=== PATIENT | male | born 1955 | race Caucasian/White ===

== ENCOUNTER 2019-08-23 12:32 | Observation (INO) | payer OTHER ==
[~2019-08-23] VITALS: Ht 170.2 cm; Wt 89.9 kg
[2019-08-23] MEDS ORDERED: IV NORMAL SALINE 1,000ML 1,000 ML IV SCH (12:50)
--- NOTE | 2019-08-23 12:56 | PHYS DOC ---
Adult General Chief Complaint Chief Complaint: CHEST PAIN HPI HPI Patient is a 64-year-old male who presents with complaint of midsternal chest pain that started this morning at about 9 AM. Patient states that pain has been fairly constant since onset and is progressively worsening. He states the pain is worsened with deep breathing. He describes the pain as a pressure but states that it gets sharp when he takes in a deep breath. He denies any radiation of the pain. He does indicate that he is gotten diaphoretic when the pain has gotten worse. He denies any nausea or vomiting however. He also denies any shortness breath. Patient denies any history of cardiac disease but does admit to a family history of cardiac disease.[] Review of Systems Review of Systems Constitutional: Denies fever or chills [] Respiratory: Denies cough or shortness of breath [] Cardiovascular: No additional information not addressed in HPI [] GI: Denies abdominal pain, nausea, vomiting or diarrhea [] Integument: Denies rash or skin lesions [] Neurologic: Denies headache, focal weakness or sensory changes [] All other systems were reviewed and found to be within normal limits, except as documented in this note. Physical Exam Physical Exam Constitutional: Well developed, well nourished, no acute distress, non-toxic appearance. [] HENT: Normocephalic, atraumatic, bilateral external ears normal, oropharynx moist, no oral exudates, nose normal. [] Eyes: PERRLA, EOMI, conjunctiva normal, no discharge. [] Neck: Normal range of motion, no tenderness, supple, no stridor. [] Cardiovascular: Regular rate and rhythm[] Lungs & Thorax: Bilateral breath sounds clear to auscultation [] Abdomen: Bowel sounds normal, soft, no tenderness. [] Skin: Warm, dry, no erythema, no rash. [] Extremities: No tenderness, no cyanosis, no clubbing, ROM intact. [] Neurologic: Alert and oriented X 3, no focal deficits noted. [] EKG EKG EKG demonstrates mild sinus tachycardia with rate of 103.[] Radiology/Procedures Radiology/Procedures [] Impressions: PROCEDURE: CT ANGIOGRAPHY CHEST Exam: CT of chest with contrast INDICATION: Chest pain TECHNIQUE: Sequential axial images through the chest obtained following the administration of 80 mL of Omni 350 IV contrast. Sagittal and coronal reformatted images were reconstructed from the axial data and reviewed. 3-D reformatted images were reconstructed from the axial data and reviewed. Comparisons: None FINDINGS: There is a hypoattenuating nodule within the lower pole of the left thyroid which measures approximately 2.0 cm. No enlarged mediastinal lymph nodes are identified. Heart size is normal. No pericardial effusion. Thoracic aorta has a normal course and caliber. Pulmonary artery is not enlarged. No pulmonary embolus is identified within the main, lobar or segmental pulmonary arteries. Airways are patent. No consolidation or pneumothorax. Strandy opacities at the dependent portion of the lung bases. No suspicious lung nodules are identified. No pleural effusion or thickening. Gallstones are noted within the gallbladder. No suspicious osseous lesions or acute fractures. IMPRESSION: 1. No pulmonary was identified within the main, lobar or segmental pulmonary arteries. 2. A 2 cm hypoattenuating nodule in the lower lobe of the left thyroid lobe. Further evaluation with nonemergent ultrasound is recommended. Exposure: One or more of the following in the visualized dose reduction techniques were utilized for this examination: 1. Automated exposure control 2. Adjustment of the MA and/or KV according to patient size 3. Use of iterative of reconstructive technique Electronically signed by: Maren Reynoso MD (08/23/2019 3:33 PM) [facility] DICTATED AND SIGNED BY: MAREN REYNOSO MD DATE: 08/23/19 1533 CC: JOSSIE PATINO Jr. DO; LOAN RAUSCH DO ~ Course & Med Decision Making Course & Med Decision Making Pertinent Labs and Imaging studies reviewed. (See chart for details) [] Dragon Disclaimer Dragon Disclaimer This electronic medical record was generated, in whole or in part, using a voice recognition dictation system. Departure Departure: Impression: Primary Impression: Chest pain Disposition: ADMITTED INPATIENT Admitting Physician: Jori Salmon Condition: IMPROVED Referrals: LOAN RAUSCH DO (PCP) Problem Qualifiers Primary Impression: Chest pain Chest pain type: unspecified Qualified Codes: R07.9 - Chest pain, unspecified JOSSIE PATINO Jr., DO Aug 23, 2019 12:56
--- NOTE | 2019-08-23 12:58 | EKG ---
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
[2019-08-23] MEDS ORDERED: NITROGLYCERIN SUBLINGUAL 0.4 MG BOTTLE OF 25. SL PRN (13:00)
[2019-08-23] MEDS ORDERED: ASPIRIN 81 MG TAB.CHEW PO ONE (13:00)
[2019-08-23 13:15] LABS: BASO # 0.1 x10^3/uL (0.0-0.2); BASO % 1 % (0-3); EOS # 0.2 x10^3/uL (0.0-0.7); EOS % 1 % (0-3); HEMATOCRIT 47.5 % (39.0-53.0); HEMOGLOBIN 16.5 g/dL (13.0-17.5); LYMPH # 1.3 x10^3/uL (1.0-4.8); LYMPH % 8 % (24-48); MEAN CORPUSCULAR HEMOGLOBIN 32 pg (25-35); MEAN CORPUSCULAR HGB CONC 35 g/dL (31-37); MEAN CORPUSCULAR VOLUME 91 fL (79-100); MONO # 1.2 x10^3/uL (0.0-1.1); MONO % 7 % (0-9); NEUT # 14.9 x10^3uL (1.8-7.7); NEUT % 84 % (31-73); PLATELET COUNT 234 x10^3/uL (140-400); RED CELL DISTRIBUTION WIDTH 13.9 % (11.5-14.5); WHITE BLOOD COUNT 17.7 x10^3/uL (4.0-11.0)
--- NOTE | 2019-08-23 13:35 | RAD ---
PORTABLE CHEST 1V Clinical indications: Chest pain. COMPARISON: None available. Findings: There is mild elevation of the right hemidiaphragm. No acute lung infiltrate or pleural effusion or pulmonary edema or lung mass or pneumothorax is seen. The heart size, pulmonary vasculature, mediastinum and both sarah are unremarkable. Impression: Mild elevation of the right hemidiaphragm. No acute lung infiltrate. Electronically signed by: Billy Marie MD (08/23/2019 1:32 PM) [facility]
[2019-08-23 13:36] LABS: ALBUMIN/GLOBULIN RATIO 1.1 (1.0-1.7); CALCIUM 9.2 mg/dL (8.5-10.1); GFR 75.2; POTASSIUM 3.3 mmol/L (3.5-5.1); TOTAL BILIRUBIN 0.7 mg/dL (0.2-1.0); TOTAL PROTEIN 7.8 g/dL (6.4-8.2)
[2019-08-23 13:51] LABS: BILIRUBIN,URINE NEG (NEG); CLARITY,URINE CLEAR; COLOR,URINE YELLOW; GLUCOSE,URINE >=1000 mg/dL (NEG); NITRITE,URINE NEG (NEG); UROBILINOGEN,URINE 0.2 mg/dL (0.2 mg/dL)
[2019-08-23 13:52] LABS: BACTERIA,URINE 0 /HPF (0-FEW); RBC,URINE RARE /HPF (0-2); SQUAMOUS EPITHELIAL CELL,UR OCC /LPF; WBC,URINE OCC /HPF (0-4)
[2019-08-23] MEDS ORDERED: IOHEXOL 350 MG/ML 100 ML VIAL. IV ONE (14:30)
[2019-08-23 15:06] LABS: % ATYL 6 % (0-0); % BANDS 2 % (0-9); % BASOS 1 % (0-3); % LYMPHS 6 % (24-48); % MONOS 3 % (0-10); % SEGS 82 % (35-66)
[2019-08-23 15:24] LABS: PLT ESTIMATE ADEQUATE (ADEQUATE)
--- NOTE | 2019-08-23 15:36 | RAD ---
Exam: CT of chest with contrast INDICATION: Chest pain TECHNIQUE: Sequential axial images through the chest obtained following the administration of 80 mL of Omni 350 IV contrast. Sagittal and coronal reformatted images were reconstructed from the axial data and reviewed. 3-D reformatted images were reconstructed from the axial data and reviewed. Comparisons: None FINDINGS: There is a hypoattenuating nodule within the lower pole of the left thyroid which measures approximately 2.0 cm. No enlarged mediastinal lymph nodes are identified. Heart size is normal. No pericardial effusion. Thoracic aorta has a normal course and caliber. Pulmonary artery is not enlarged. No pulmonary embolus is identified within the main, lobar or segmental pulmonary arteries. Airways are patent. No consolidation or pneumothorax. Strandy opacities at the dependent portion of the lung bases. No suspicious lung nodules are identified. No pleural effusion or thickening. Gallstones are noted within the gallbladder. No suspicious osseous lesions or acute fractures. IMPRESSION: 1. No pulmonary was identified within the main, lobar or segmental pulmonary arteries. 2. A 2 cm hypoattenuating nodule in the lower lobe of the left thyroid lobe. Further evaluation with nonemergent ultrasound is recommended. Exposure: One or more of the following in the visualized dose reduction techniques were utilized for this examination: 1. Automated exposure control 2. Adjustment of the MA and/or KV according to patient size 3. Use of iterative of reconstructive technique Electronically signed by: Maren Joyner MD (08/23/2019 3:33 PM) [facility]
[2019-08-23] MEDS ORDERED: ONDANSETRON PF 4 MG/2 ML VIAL. IV PRN (16:15)
[2019-08-23] MEDS ORDERED: MORPHINE SULFATE 2 MG/ML DISP.SYRIN. IV PRN (16:15)
[2019-08-23 17:37] VITALS: BP 149/81
--- NOTE | 2019-08-23 17:58 | NUR ---
NSG NOTE; ADMISSION ADMIT TO ROOM 119 AT 1725 FROM ED VIA CART ACCOMP BY EMS PERSONNEL AND JOSE C/O CHEST PAIN SINCE 1000 TODAY, BUT HAS RESOLVED AT THIS TIME
[2019-08-23] MEDS ORDERED: GLIP10TA24 PO ×2 (19:26)
[2019-08-23] MEDS ORDERED: TRIA1TAB5 PO (19:26)
[2019-08-23] MEDS ORDERED: METF10007 PO (19:26)
[2019-08-23] MEDS ORDERED: RAMI10CA53 PO (19:26)
[2019-08-23] MEDS ORDERED: HYDR12.58 PO (19:26)
[2019-08-23] MEDS ORDERED: DAPA5TAB PO (19:26)
[2019-08-23] MEDS ORDERED: SITA100T PO (19:26)
[2019-08-23] MEDS ORDERED: SIMV20TA18 PO (19:26)
[2019-08-23] MEDS ORDERED: metFORMIN 500 MG TABLET PO SCH (20:30)
[2019-08-23] MEDS ORDERED: SIMVASTATIN 20 MG TABLET PO SCH (21:00)
[2019-08-23] MEDS ORDERED: LISINOPRIL 20 MG TABLET PO SCH (21:00)
[2019-08-23 21:19] VITALS: BP 144/75
[2019-08-23 23:15] VITALS: BP 154/77
[2019-08-24] MEDS ORDERED: POTASSIUM CHLORIDE 20 MEQ TABLET.ER. PO ONE (02:30)
[2019-08-24 06:19] VITALS: BP 126/72
--- NOTE | 2019-08-24 08:52 | PDOC2 ---
CARDIAC CONSULT DATE OF CONSULT Date Of Consult DATE: 08/24/19 TIME: 08:46 REASON FOR CONSULT Reason for Consult Chest pain REFERRING PHYSICIAN Referring Physician Dr. Ncik SOURCE Source: Chart review, Patient HPI History of Present Illness This is a 64 yo male who presented secondary to chest pain. Patient reports feeling well upon awakening yesterday morning. While getting ready for the day, notice some aching in her left shoulder. Bantam as if he slept on his shoulder wrong overnight. Attempted to stretch it out, but did not have any significant improvement. Later in the morning, developed aching in his central chest and then broke out in a sweat. Was concerned as he had never had this pain before so he went to the ED for further evaluation and treatment. No associated dizziness, palpitations, or nausea/vomiting. Did feel as if he was unable to take a deep breath. No specific relieving factors. Pain is still vaguely present. Did seem to worsen with deep breath this morning. No recent could or URI. Reports chronic nasal congestion. PAST MEDICAL HISTORY Cardiovascular: HTN, hyperipidemia Endocrine: Diabetes PAST SURGICAL HISTORY Past Surgical History: No pertinent history FAMILY HISTORY Family History: Coronary Artery Disease (father CABG x5 at age 70), Diabetes SOCIAL HISTORY Smoke: No ALCOHOL: none Drugs: None Lives: with Family CURRENT MEDICATIONS Current Medications Current Medications Aspirin (Children'S Aspirin) 324 mg 1X ONCE PO Last administered on 08/23/19at 13:01; Start 08/23/19 at 13:00; Stop 08/23/19 at 13:01; Status DC Nitroglycerin (Nitrostat) 0.4 mg PRN Q5MIN PRN SL CP RATING > 1/10 Last administered on 08/23/19at 13:05; Start 08/23/19 at 13:00; Stop 08/24/19 at 12:59 Sodium Chloride 1,000 ml @ 1,000 mls/hr Q1H IV Last administered on 08/23/19at 13:02; Start 08/23/19 at 12:50; Stop 08/23/19 at 13:49; Status DC Iohexol (Omnipaque 350 Mg/ml) 100 ml 1X ONCE IV Last administered on 08/23/19at 14:41; Start 08/23/19 at 14:30; Stop 08/23/19 at 14:31; Status DC Ondansetron HCl (Zofran) 4 mg PRN Q4HRS PRN IV NAUSEA/VOMITING; Start 08/23/19 at 16:15; Stop 08/24/19 at 16:14 Morphine Sulfate (Morphine 2mg Syringe) 2 mg PRN Q2HR PRN IV PAIN Last administered on 08/24/19at 02:34; Start 08/23/19 at 16:15; Stop 08/24/19 at 16:14 Simvastatin (Zocor) 20 mg QHS PO Last administered on 08/23/19at 20:36; Start 08/23/19 at 21:00 Triamterene/HCTZ (Maxzide 75/50mg) 1 tab DAILY PO ; Start 08/24/19 at 09:00 Non-Formulary Medication (Dapagliflozin Propanediol (Farxiga)) 5 mg DAILY PO ; Start 08/24/19 at 09:00; Status UNV Glipizide (Glucotrol Er) 10 mg DAILY08 PO Last administered on 08/23/19at 20:36; Start 08/23/19 at 20:30 Glipizide (Glucotrol Er) 20 mg DAILYWSUP PO ; Start 08/24/19 at 17:00 Hydrochlorothiazide (Microzide) 12.5 mg DAILY PO ; Start 08/24/19 at 09:00 Metformin HCl (Glucophage) 1,000 mg BIDWMEALS PO ; Start 08/23/19 at 20:30; Stop 08/23/19 at 20:12; Status DC Lisinopril (Prinivil) 20 mg HS PO Last administered on 08/23/19at 20:36; Start 08/23/19 at 21:00 Linagliptin (Tradjenta) 5 mg DAILY PO ; Start 08/24/19 at 09:00 Metformin HCl (Glucophage) 1,000 mg BIDWMEALS PO ; Start 08/25/19 at 17:00 Potassium Chloride (Klor-Con) 40 meq 1X ONCE PO Last administered on 08/24/19at 02:33; Start 08/24/19 at 02:30; Stop 08/24/19 at 02:31; Status DC Active Scripts Active Reported Triamterene-Hctz 75-50 Mg Tab (Triamterene/Hydrochlorothiazid) 1 Each Tablet 1 Tab PO DAILY Hydrochlorothiazide Tablet (Hydrochlorothiazide) 12.5 Mg Tablet 12.5 Mg PO DAILY Ramipril 10 Mg Capsule 1 Cap PO HS Farxiga (Dapagliflozin Propanediol) 5 Mg Tablet 5 Mg PO DAILY Januvia (Sitagliptin Phosphate) 100 Mg Tablet 1 Tab PO DAILY Glipizide Er (Glipizide) 10 Mg Tab.er.24 2 Tab PO DAILYWSUP Glipizide Er (Glipizide) 10 Mg Tab.er.24 1 Tab PO DAILY Metformin Hcl 1,000 Mg Tablet 1 Tab PO BIDWMEALS Simvastatin 20 Mg Tablet 1 Tab PO QHS ALLERGIES Allergies: Coded Allergies: No Known Drug Allergies (Unverified , 08/23/19) ROS Review of Systems 14 point ROS conducted with pertinent positives noted above in HPI PHYSICAL EXAM General: Alert, Oriented X3, Cooperative, No acute distress HEENT: Atraumatic, Mucous membr. moist/pink Lungs: Clear to auscultation, Normal air movement Heart: Regular rate, Normal S1, Normal S2, No murmurs Abdomen: Soft, No tenderness Extremities: No edema, Normal pulses Neuro: Normal speech, Normal tone, Sensation intact Psych/Mental Status: Mental status NL, Mood NL MUSCULOSKELETAL: Osteoarthritic changes both hands VITALS Vital Signs Vital Signs Date Time Temp Pulse Resp B/P (MAP) Pulse Ox O2 Delivery O2 Flow Rate FiO2 08/24/19 06:19 98.1 92 18 126/72 (90) 93 Room Air LABS LABS Laboratory Tests Test 08/23/19 12:47 08/23/19 13:25 08/23/19 17:34 08/23/19 17:55 White Blood Count 17.7 x10^3/uL (4.0-11.0) Red Blood Count 5.20 x10^6/uL (4.30-5.70) Hemoglobin 16.5 g/dL (13.0-17.5) Hematocrit 47.5 % (39.0-53.0) Mean Corpuscular Volume 91 fL (79-100) Mean Corpuscular Hemoglobin 32 pg (25-35) Mean Corpuscular Hemoglobin Concent 35 g/dL (31-37) Red Cell Distribution Width 13.9 % (11.5-14.5) Platelet Count 234 x10^3/uL (140-400) Neutrophils (%) (Auto) 84 % (31-73) Lymphocytes (%) (Auto) 8 % (24-48) Monocytes (%) (Auto) 7 % (0-9) Eosinophils (%) (Auto) 1 % (0-3) Basophils (%) (Auto) 1 % (0-3) Neutrophils # (Auto) 14.9 x10^3uL (1.8-7.7) Lymphocytes # (Auto) 1.3 x10^3/uL (1.0-4.8) Monocytes # (Auto) 1.2 x10^3/uL (0.0-1.1) Eosinophils # (Auto) 0.2 x10^3/uL (0.0-0.7) Basophils # (Auto) 0.1 x10^3/uL (0.0-0.2) Segmented Neutrophils % 82 % (35-66) Band Neutrophils % 2 % (0-9) Lymphocytes % 6 % (24-48) Atypical Lymphocytes % (Manual) 6 % (0-0) Monocytes % 3 % (0-10) Basophils % 1 % (0-3) Platelet Estimate Adequate (ADEQUATE) D-Dimer (Kelley) 1.90 mg/L (0.00-0.50) Sodium Level 136 mmol/L (136-145) Potassium Level 3.3 mmol/L (3.5-5.1) Chloride Level 97 mmol/L (98-107) Carbon Dioxide Level 28 mmol/L (21-32) Anion Gap 11 (6-14) Blood Urea Nitrogen 17 mg/dL (8-26) Creatinine 1.0 mg/dL (0.7-1.3) Estimated GFR (Cockcroft-Gault) 75.2 BUN/Creatinine Ratio 17 (6-20) Glucose Level 224 mg/dL (70-99) Calcium Level 9.2 mg/dL (8.5-10.1) Total Bilirubin 0.7 mg/dL (0.2-1.0) Aspartate Amino Transf (AST/SGOT) 24 U/L (15-37) Alanine Aminotransferase (ALT/SGPT) 35 U/L (16-63) Alkaline Phosphatase 56 U/L (46-116) Troponin I Quantitative < 0.017 ng/mL (0-0.055) < 0.017 ng/mL (0-0.055) PZ-Etr-J-Type Natriuretic Peptide 28 pg/mL (0-124) Total Protein 7.8 g/dL (6.4-8.2) Albumin 4.0 g/dL (3.4-5.0) Albumin/Globulin Ratio 1.1 (1.0-1.7) Urine Collection Type Unknown Urine Color Yellow Urine Clarity Clear Urine pH 5.0 Urine Specific [place] 1.010 Urine Protein Neg (NEG-TRACE) Urine Glucose (UA) >=1000 mg/dL (NEG) Urine Ketones (Stick) 15 mg/dL (NEG) Urine Blood Neg (NEG) Urine Nitrite Neg (NEG) Urine Bilirubin Neg (NEG) Urine Urobilinogen Dipstick 0.2 mg/dL (0.2 mg/dL) Urine Leukocyte Esterase Neg (NEG) Urine RBC Rare /HPF (0-2) Urine WBC Occ /HPF (0-4) Urine Squamous Epithelial Cells Occ /LPF Urine Bacteria 0 /HPF (0-FEW) Glucose (Fingerstick) 126 mg/dL (70-99) Test 08/23/19 20:19 08/23/19 22:05 08/24/19 07:48 Glucose (Fingerstick) 224 mg/dL (70-99) 177 mg/dL (70-99) Troponin I Quantitative < 0.017 ng/mL (0-0.055) ASSESSMENT/PLAN Assessment/Plan 1. Chest pain, mixed features. AMI ruled out 2. Hypertension; controlled 3. Hyperlipidemia; statin 4. Diabetes, II 5. Hypokalemia; replaced 6. Elevated d-dimer; CTA negative for PE 7. Leucocytosis Recommendations Lipid panel ASA, statin Echo to assess LV systolic function Will need further ischemic evaluation given significant cardiac risk factors, probably on an outpatient basis. ROBI MUSA APRN Aug 24, 2019 08:52
[2019-08-24] MEDS ORDERED: LINAGLIPTIN 5 MG TABLET PO SCH (09:00)
[2019-08-24] MEDS ORDERED: TRIAMTERENE/HCTZ 75/50MG TABLET. PO SCH (09:00)
[2019-08-24] MEDS ORDERED: NON FORMULARY ITEM (Dapagliflozin Propanediol (Farxiga) 5 MG) PO SCH (09:00)
[2019-08-24] MEDS ORDERED: hydroCHLOROthiazide 12.5 MG CAPSULE PO SCH (09:00)
[2019-08-24] MEDS ORDERED: ASPIRIN ENTERIC COATED 81 MG TABLET.DR. PO SCH (09:15)
[2019-08-24 11:29] VITALS: BP 125/67
--- NOTE | 2019-08-24 12:39 | CARD ---
MR#: [id number] Date of Study: 08/24/2019 Ordering Physician: ROBI MUSA, Referring Physician: ROBI MUSA, Tech: Rebecca Gama RDCS APPROVED REPORT EXAM: Two-dimensional and M-mode echocardiogram with Doppler and color Doppler. Other Information Quality : AverageHR: 95bpm Rhythm : NSR INDICATION Chest Pain 2D DIMENSIONS RVDd3.3 (2.9-3.5cm)Left Atrium(2D)3.2 (1.6-4.0cm) IVSd1.2 (0.7-1.1cm)Aortic Root(2D)3.4 (2.0-3.7cm) LVDd4.2 (3.9-5.9cm)PWd1.3 (0.7-1.1cm) LVDs2.8 (2.5-4.0cm)FS (%) 33.4 % SV49.3 mlLVEF(%)62.5 (>50%) Aortic Valve AoV Peak Sukhjinder.109.1cm/sAoV VTI16.2cm AO Peak GR.4.8mmHgAO Mean GR.3mmHg MARIA ELENA (VTI)2.39cm2 Mitral Valve MV E Omqayesl62.2cm/sMV DECEL EWHX380pj MV A Qrjehswq60.1cm/sE/A Ratio0.9 MV A Bcavlhut30zi Tricuspid Valve TR P. Alrtjtrx585at/sRAP ASRQHIJR4wgOw TR Peak Gr.64npUhOTXJ05kkRh LEFT VENTRICLE The left ventricle is normal size. There is mild concentric left ventricular hypertrophy. The left ve ntricular systolic function is normal and the ejection fraction is within normal range. The Ejection Fraction is 55-60%. There is normal LV segmental wall motion. Transmitral Doppler flow pattern is Gra de I-abnormal relaxation pattern. RIGHT VENTRICLE The right ventricle is normal size. There is normal right ventricular wall thickness. The right ventr icular systolic function is normal. ATRIA The left atrium size is normal. The right atrium size is normal. The interatrial septum is intact wit h no evidence for an atrial septal defect or patent foramen ovale as noted on 2-D or Doppler imaging. AORTIC VALVE The aortic valve is mildly calcified. The aortic valve is trileaflet. Doppler and Color Flow revealed no significant aortic regurgitation. There is no significant aortic valvular stenosis. There is no a ortic valvular vegetation. MITRAL VALVE Mitral annular calcification is mild. There is no evidence of mitral valve prolapse. There is no mitr al valve stenosis. Doppler and Color-flow revealed trace mitral regurgitation. TRICUSPID VALVE The tricuspid valve is normal in structure and function. Doppler and Color Flow revealed trace tricus pid regurgitation. The PA pressure was estimated at 28 mmHg. There is no tricuspid valve prolapse or vegetation. There is no tricuspid valve stenosis. PULMONIC VALVE The pulmonic valve is not well visualized. GREAT VESSELS The aortic root is normal in size. The ascending aorta is normal in size. The IVC was not visualized. PERICARDIAL EFFUSION There is no evidence of significant pericardial effusion. Critical Notification Critical Value: No <Conclusion> The left ventricular systolic function is normal and the ejection fraction is within normal range. Th e Ejection Fraction is 55-60%. There is normal LV segmental wall motion. Signed by : Mauricio Gaytan, Electronically Approved : 08/24/2019 12:39:14
--- NOTE | 2019-08-24 13:40 | SSS ---
ADMIT DATE: 08/24/2019 HISTORY OF PRESENT ILLNESS: The patient is a 64-year-old male patient who basically came to the Emergency Room, complaining of chest pain. He stated that he was feeling well. Upon awakening yesterday morning while getting ready for the day, he noticed some aching in his left shoulder felt as if he slept on his shoulder wrongly overnight, attempted to stretch it out, did not have any significant improvement. Later in the morning, he developed aching in his central chest, then broke out into a sweat, was concerned that he has never had pain before. He went to the Emergency Department for evaluation and treatment. He denied any nausea or vomiting. Denied any dizziness or palpitation. Did feel that he has had difficulty taking a deep breath, but no specific relieving factors. He was evaluated in the Emergency Room and his first set of cardiac enzymes showed troponin to be less than 0.017 and therefore was admitted to do 2 more sets of cardiac enzymes and to consult the cardiology team and in fact, he has had 2 more sets of cardiac enzymes that were negative. The D-dimer was high and therefore, he has a CT angio of the chest, which was basically negative for pulmonary embolism. There is a 2 cm hypoattenuating nodule in the lower lobe of the left thyroid lobe, further evaluation with nonemergent ultrasound is recommended and has had an echocardiogram done, which showed that his left ventricular systolic function is normal, ejection fraction is normal at 55-60%, has normal left ventricular segmental wall motion. The Cardiology team recommended the patient can be discharged with a plan for ischemic workup as an outpatient. PAST MEDICAL HISTORY: Significant for hypertension, hyperlipidemia, and type 2 diabetes. PAST SURGICAL HISTORY: Significant for esophageal stricture, status post dilatation. He has also colonoscopy and esophagogastroduodenoscopy. ALLERGIES: He has no known drug allergies. MEDICATIONS: He is currently on following medications: He is on simvastatin 20 mg at bedtime, ramipril 10 mg daily at bedtime, triamterene/hydrochlorothiazide 75/50 mg daily, hydrochlorothiazide 12.5 mg daily, metformin 1000 mg twice a day with meals, sitagliptin for Januvia 100 mg once a day, Farxiga 5 mg p.o. daily, glipizide 10 mg extended release, takes 10 in the morning, 20 mg at bedtime. FAMILY HISTORY: He has 2 brothers and 1 sister, all younger and healthy. Father at age of 84, has had CABG x 5, multiple myocardial infarctions and multiple stents. Mother is still alive at the age of 86 and she has diabetes and dementia. SOCIAL HISTORY: He is , has 2 sons and 1 daughter, never smoked, does not drink alcohol or use any recreational drugs. REVIEW OF SYSTEMS: The patient denied any blurring of vision, cataract, glaucoma or macular degeneration. Denied any earache, tinnitus or sensorineural deafness. Denied nosebleeds, stuffy nose, or postnasal drip. Denied any sore throat, sore tongue, toothache, hoarseness of voice or difficulty swallowing. Denied any nausea, vomiting, diarrhea or constipation. Denied any hematemesis, melena or hematochezia. Denied any dysuria, frequency or hematuria. Did complain of postvoid dribbling and nocturia. He obviously had the chest pain; however, denied any orthopnea or paroxysmal nocturnal dyspnea. Denied any cough, phlegm or hemoptysis. PHYSICAL EXAMINATION: GENERAL: On arrival to the Emergency Room, he looked well and was clearly in no apparent respiratory distress. No pallor, jaundice, cyanosis or thyromegaly. No jugular venous distention. No limb edema. VITAL SIGNS: His heart rate was 105, blood pressure was 149/81, temperature was 98.2, respiratory rate 20, and oxygen saturation was 97%. HEAD, EYES, EARS, NOSE AND THROAT: Showed normocephalic, atraumatic. NECK: Supple. HEART: Showed normal first and second heart sounds. No gallop or murmur. CHEST: Clear to auscultation. No crepitation or rhonchi. ABDOMEN: Distended, soft, and nontender. NEUROLOGIC: He was awake, alert, responding appropriately. All cranial nerves intact. EXTREMITIES: He moves extremities without difficulty, ambulates without assistance or assistive devices. LABORATORY DATA: His white cell count was high at 17,700, hemoglobin 16.5, hematocrit 47, MCV 91, and platelet count 234,000. His serum sodium was 136, potassium 3.3, chloride 97, bicarbonate 28, anion gap of 11, BUN 17, creatinine 1, estimated GFR was 75 mL per minute. His glucose was 124, calcium was 9.2. Total bilirubin, AST, ALT, alkaline phosphatase were normal. Total protein was 7.8, albumin 4. He has 3 sets of cardiac enzymes that were negative. His D-dimer was high at 1.9. Urinalysis was essentially unremarkable and he has had a chest x-ray, which basically showed mild elevation of the right hemidiaphragm. No acute lung infiltrate and his CT angio of the chest showed that the patient has no pulmonary emboli were identified within the main lobar or segmental pulmonary arteries. The airways are patent. No consolidation, no pneumothorax, strandy opacities at the dependent portion of the lung bases. No suspicious lung nodules were identified. He has an echocardiogram, which showed that the patient has normal left ventricular systolic function, normal ejection fraction of 55-60%. The patient was discharged home to continue on all his current medication and we will then ischemic workup to be arranged as an outpatient. FINAL DISCHARGE DIAGNOSES: Chest pain, atypical, acute myocardial infarction was ruled out, hypertension, hyperlipidemia, and type 2 diabetes. JANIS DEGROOT MD DR: OLINDA/noreen JOB#: [id number] / [id number]
[2019-08-24] MEDS ORDERED: ASPI-630 PO (14:19)
[2019-08-25] MEDS ORDERED: metFORMIN 500 MG TABLET PO SCH (17:00)
== END 2019-08-24 17:00 | disposition home or self-care (01) ==
LOC: ER 12:32 → INTOOBSV 17:19 → 1 SOUTH 17:19
PROVIDERS: ADMIT Internal Medicine; ATTEND Internal Medicine
DX: R07.89 Other chest pain (principal); I10 Essential (primary) hypertension; E78.5 Hyperlipidemia, unspecified; E87.6 Hypokalemia; E11.9 Type 2 diabetes mellitus without complications; D72.829 Elevated white blood cell count, unspecified; R97.1 Elevated cancer antigen 125 [CA 125]; Z79.82 Long term (current) use of aspirin; Z79.84 Long term (current) use of oral hypoglycemic drugs; Z79.899 Other long term (current) drug therapy
CPT/HCPCS: 36415; 71045; 71275; 80053; 80061; 81001; 82947; 83735; 83880; 84484; 85025; 85379; 93005; 93306; 96374; 99284; G0378; G0379; J2270; Q9967; 85007; 96360; 99285-25; J7030

== ENCOUNTER → 2019-09-16 | Outpatient (CLI) | payer OTHER ==
[2019-08-24 11:29] VITALS: BP 125/67
[~2019-09-16] MED LIST: ASPI-630 PO; DAPA5TAB PO; GLIP10TA24 PO; HYDR12.58 PO; METF10007 PO; RAMI10CA53 PO; SIMV20TA18 PO; SITA100T PO; TRIA1TAB5 PO
[2019-09-16] MEDS: REGADENOSON 0.4 MG/5 ML DISP.SYRIN. IV ONE (10:09)
--- NOTE | 2019-09-16 12:38 | RAD ---
MR#: [id number] Date of Study: 09/16/2019 Ordering Physician: APRIL PATEL, Referring Physician: BHUPINDER NIETO Tech: RT Joyce Garcia) (N) APPROVED REPORT Test Type: Pharmacological Stress Nurse/Tech: RT Radha (Carolyne) (N) Test Indications: chest pain Cardiac History: none Medications: see EHR Medical History: hypertension, diabetic Resting ECG: sinus rhythm Resting Heart Rate: 90 bpm Resting Blood Pressure: 151/73mmHg Pretest Chest Pain: None Nurse/Tech Notes Consent: The procedure was explained to the patient in lay terms. Informed consent was witnessed. Nguyễn eout was entered into [facility]. History and Stress Test performed by RT Joyce Garcia) (N) Pharm. Details Pharmacologic stress testing was performed using 0.4mg per 5ml of regadenoson given intravenously ove r 7-10 seconds. POST EXERCISE Reason for Termination: Infusion complete Max HR: 110 bpm Max Blood Pressure: 153/72mmHg INTERPRETATION Stress EKG Conclusion: Baseline EKG showed sinus rhythm. No ischemic changes at peak stress. No arr hythmias. Imaging Protocol IMAGE PROTOCOL: Rest Tc-99m/stress Tc-99m 1 day Rest: Stress: Viability: Radiopharm.Tc99m [id number] Sestamibi Dose10.5mCi 31.2mCi Duration 15min. 10min. Img Date 09/16/2019 09/16/2019 Inj-Img [id number]. 60min. Rest Admin Site:IV - Right AntecubitalAdministrator: RT Radha (R)(N) Stress Admin Site: IV - Right AntecubitalAdministrator: RT Joyce Garcia)(N) STRESS DATA End Diast. Vol.102.0mlAv. Heart Rate90.0bpm End Syst. Vol.28.0mlCO Index BSA0.0L/min Myocardial Nsfv861.0gEject. Cfwbiywm22.0% Stress Rates Pk. Fill Rate2.81EDV/secLVtime Pk. Fill 125.20msec Pk. Empty Rate4.12ESV/secLVtime Pk. Zpkhd583.92msec 1/3 Pk. Fill1.42EDV/sec Stress Scores Regional WT1.00Summed WT3.00 Regional WM0.00Summed WM8.00 Study quality was good. Left Ventricular size was Normal at Rest and Stress. Lung uptake was . Left Ventricular ejection fraction is 64%. The rest and stress images show normal perfusion, normal contraction and thickening. LV Perf. Quant 17 Seg. SSS2.00 17 Seg. SRS2.00 17 Seg. SDS1.00 Stress Defect Extent (% LAD)0.00Rest Defect Extent (% LAD)3.10Rev. Defect Extent (% LAD)0.00 Stress Defect Extent (% LCX) 15.00Rest Defect Extent (% LCX)16.30Rev. Defect Extent (% LCX)0.00 Stress Defect Extent (% RCA)0.00Rest Defect Extent (% RCA)0.00Rev. Defect Extent (% RCA)0.00 Stress Defect Extent (% FIDELIA)2.60Rest Defect Extent (% FIDELIA)4.80Rev. Defect Extent (% FIDELIA)0.00 Conclusion 1. Regadenoson cardioisotope stress test did not show any evidence of ischemia or infarct. 2. Normal left ventricular systolic function with ejection fraction calculated at 64%. 3. Low risk for cardiac events. Signed by : Les Sandoval, Electronically Approved : 09/16/2019 12:37:38
== END | disposition home or self-care (01) ==
LOC: NM 07:53
PROVIDERS: ATTEND Internal Medicine Cardiovascular Disease
DX: I48.91 Unspecified atrial fibrillation (principal); I10 Essential (primary) hypertension; E11.9 Type 2 diabetes mellitus without complications
CPT/HCPCS: 78452; 93017; A9500; J2785